=== PATIENT | female | born 1955 | race Caucasian/White ===

== ENCOUNTER 2023-08-28 09:45 | Day surgery (SDC) | payer MEDICARE, BC ==
[2023-08-24 15:07] LABS: BASOPHILS # (AUTO) 0.1 X10'3 (0-0.2); BASOPHILS % (AUTO) 0.7 % (0-1); EOSINOPHILS # (AUTO) 0.3 X10'3 (0-0.9); EOSINOPHILS % (AUTO) 2.4 % (0-6); HEMATOCRIT 40.7 % (35.0-45.0); HEMOGLOBIN 12.9 g/dl (12.0-16.0); LYMPHOCYTES # (AUTO) 2.8 X10'3 (1.1-4.8); LYMPHOCYTES % (AUTO) 22.8 % (21-51); MEAN CORPUSCULAR HEMOGLOBIN 25.9 PG (27.0-31.0); MEAN CORPUSCULAR HGB CONC 31.7 g/dL (33.0-36.5); MEAN CORPUSCULAR VOLUME 81.6 FL (78-98); MONOCYTES # (AUTO) 0.9 X10'3 (0-0.9); MONOCYTES % (AUTO) 7.5 % (2-12); NEUTROPHILS # (AUTO) 8.3 X10'3 (1.8-7.7); NEUTROPHILS % (AUTO) 66.6 % (42-75); PLATELET COUNT 373 X10'3 (140-440); RED BLOOD COUNT 4.99 X10'6 (4.20-5.60); RED CELL DISTRIBUTION WIDTH 17.1 % (11.5-14.5); WHITE BLOOD COUNT 12.5 X10'3 (4.5-11.0)
[2023-08-24 15:11] LABS: ALBUMIN 3.2 G/DL (3.4-5.0); ANION GAP 11 (8-16); BLOOD UREA NITROGEN 29 MG/DL (7-18); BUN/CREATININE RATIO 22.7 (10.0-20.0); CHLORIDE 99 MMOL/L (99-107); CREATININE 1.28 MG/DL (0.40-0.90); GLUCOSE 139 MG/DL (70-104); SODIUM 139 MMOL/L (135-145); eGFR 42 ML/MIN
[2023-08-24 15:15] LABS: APTT 28 SECONDS (22-32); INR 1.1 INR; PROTHROMBIN TIME 11.2 SECONDS (9.0-12.0)
[~2023-08-28] VITALS: Ht 167.6 cm; Wt 119.5 kg
[2023-08-28] VITALS (11 sets, daily range): BP systolic 106–149; BP diastolic 50–85; PULSE 48–80; RESP 12; TEMP 98.2; O2SAT 94–99
[2023-08-28] MEDS: normal saline 1000ml 1,000 ML IV SCH (10:10)
[2023-08-28] MEDS ORDERED: ESOM40CA54 PO (10:34)
[2023-08-28] MEDS ORDERED: LEVO175T7 PO (10:34)
[2023-08-28] MEDS ORDERED: APIX5TAB3 PO (10:34)
[2023-08-28] MEDS ORDERED: LOSA50TA64 PO (10:34)
[2023-08-28] MEDS ORDERED: METO5TAB7 PO (10:34)
[2023-08-28] MEDS ORDERED: AMI200T PO (10:34)
[2023-08-28] MEDS ORDERED: CITA20TA17 PO (10:34)
[2023-08-28] MEDS ORDERED: METO75TA PO (10:34)
[2023-08-28] MEDS ORDERED: DAPA10TA PO (10:34)
[2023-08-28] MEDS ORDERED: IPRA3AMP9 NEB (10:34)
[2023-08-28] MEDS ORDERED: POTA-197 PO (10:34)
[2023-08-28] MEDS: fentaNYL/PF 50MCG/1 ML 2ML syringe IV ONE (13:01)
[2023-08-28] MEDS: MIDAZolam 1mg/ml 10ml vial IV ONE (13:01)
== END 2023-08-28 14:05 | disposition home or self-care (01) ==
LOC: SSTAY O 09:45
PROVIDERS: ATTEND Student in an Organized Health Care Education/Training Program
DX: I48.91 Unspecified atrial fibrillation (principal); I10 Essential (primary) hypertension; E03.9 Hypothyroidism, unspecified; J45.909 Unspecified asthma, uncomplicated; G47.33 Obstructive sleep apnea (adult) (pediatric); F41.9 Anxiety disorder, unspecified; Z79.01 Long term (current) use of anticoagulants; Z79.890 Hormone replacement therapy; Z79.899 Other long term (current) drug therapy; Z98.890 Other specified postprocedural states; Z88.8 Allergy status to other drugs, medicaments and biological substances
CPT/HCPCS: 36415; 80048; 84132; 85025; 85610; 85730; 92960; 93005; J2250; J3010; J7030